=== PATIENT | female | born 1980 | race Caucasian/White ===

== ENCOUNTER → 2020-11-21 11:12 | Outpatient (CLI) | payer OTHER, SELFPAY ==
[2020-11-21 12:07] LABS: Hematocrit 44.5 % (36-46); Hemoglobin 14.8 g/dL (12.0-16.0); Mean Corpuscular HGB Conc 33.2 % (30-36); Mean Corpuscular Hemoglobin 26.6 PG (26-34); Mean Corpuscular Volume 80.2 fL (80-100); Platelet Count 212 X10^3/uL (150-400); Red Blood Cell Count 5.55 X10^6/uL (4.0-5.2); Red Cell Distribution Width 21.7 % (11.6-14.8)
[2020-11-21 12:12] LABS: BUN Creatinine Ratio 25.2 (6-22); Blood Urea Nitrogen 30 mg/dL (7-17); Calcium 9.3 mg/dL (8.4-10.2); Carbon Dioxide 30 mmol/L (22-32); Chloride 97 mmol/L (98-107); Glucose 86 mg/dL (70-100); HEMOLYSIS < 15 (0-50); Sodium 135 mmol/L (137-145)
[2020-11-21 12:19] LABS: HEMOLYSIS < 15 (0-50); Iron 158 ug/dL (37-170)
[2020-11-21 12:31] LABS: Percent Iron Saturation 34 % (15-50); Total Iron Binding Capacity 468 ug/dL (265-497); Transferrin 357 mg/dL (206-381)
[2020-11-21 13:15] LABS: Folate 9.3 ng/mL (2.76-20.0)
== END ==
PROVIDERS: PCP Student in an Organized Health Care Education/Training Program; Referring Provider Student in an Organized Health Care Education/Training Program; Visit Provider Student in an Organized Health Care Education/Training Program
DX: D64.9 Anemia, unspecified (principal); E05.00 Thyrotoxicosis with diffuse goiter without thyrotoxic crisis or storm; I50.20 Unspecified systolic (congestive) heart failure
CPT/HCPCS: 36415; 80048; 82607; 82746; 83540; 83550; 85027; 85045